=== PATIENT | male | born 1965 | race African-American/Black ===

== ENCOUNTER 2021-07-07 20:58 | Observation (INO) ==
[2021-07-07] MEDS ORDERED: CIPROFLOXACIN 500 MG TABLET PO STA (21:13)
[2021-07-07] MEDS ORDERED: CLINDAMYCIN 300 MG CAPSULE PO STA (21:13)
[2021-07-07] MEDS ORDERED: DIPH/TET/ACEL PERT BOOSTER VACCINE 0.5 ML VIAL IM ONE (21:18)
[2021-07-07] MEDS ORDERED: CIPROFLOXACIN INJ 400 MG/200 ML PREMIX IV STA (21:27)
[2021-07-07] MEDS ORDERED: CLINDAMYCIN INJ 600 MG/50 ML PREMIX IV STA (21:27)
[2021-07-07] MEDS ORDERED: RABIES VIRUS VACCINE 1 ML/2.5 UNIT KIT IM ONE (21:37)
[2021-07-07] MEDS ORDERED: RABIES IMMUNE GLOBULIN 300 UNIT/ML IM STA (21:37)
[2021-07-07] MEDS: SODIUM CHLORIDE 0.9% 1,000 ML IV SCH (22:00)
[2021-07-07 22:05] LABS: Basophils % 0.3 % (0.0-0.8); Eosinophils # 0.1 10*3/uL (0.0-0.87); Eosinophils % 1.4 % (0.00-10.9); Hematocrit 33.2 VOL% (42.0-52.0); Hemoglobin 10.9 GM/DL (14.0-18.0); Immature Granulocytes % 0.3 %; Immature Granulocytes Absolute 0.03 #; Lymphocytes # 2.6 10*3/uL (1.4-4.0); Lymphocytes % 25.6 % (21.2-54.2); Mean Corpuscular HGB Conc 32.8 GM/DL (32-36); Mean Corpuscular Volume 88.1 FL (87-102); Mean Platelet Volume 9.9 FL (9.6-12.0); Monocytes % 7.8 % (1.7-12.7); Neutrophils % 64.6 % (38.7-73.9); Platelet Count 212 T/CUMM (130-400); Red Blood Count 3.77 MC/CUMM (3.8-5.5); Red Cell Distribution Width 14.4 % (9.3-17.3); White Blood Count 10.2 T/CUMM (4-12)
[2021-07-07 22:28] LABS: Alanine Aminotransferase 26 U/L (16-61); Albumin 4.3 G/DL (3.4-5.0); Alkaline Phosphatase 32 U/L (45-117); Aspartate Amino Transferase 25 U/L (0-37); Bilirubin,Total < 0.39 MG/DL (0.20-1.00); Blood Urea Nitrogen 15 MG/DL (7-18); Calcium 8.7 MG/DL (8.5-10.1); Carbon Dioxide 23 MMOL/L (21-32); Estimated Glom Filtration Rate 92 ML/MIN; Glucose 113 MG/DL (74-106); Osmolality,Calculated 278.5 MOS/KG (273-304); Potassium 3.9 MMOL/L (3.5-5.1); Sodium 139 MMOL/L (136-145); Total Protein 7.5 G/DL (6.4-8.2)
[2021-07-08] MEDS ORDERED: ACETAMINOPHEN 325 MG TABLET PO PRN (00:04)
[2021-07-08] MEDS ORDERED: ONDANSETRON 4 MG/2 ML VIAL IV PRN (00:04)
[2021-07-08] MEDS ORDERED: DEXTROSE 50% 25 GM/50 ML SYRINGE IV PRN (00:04)
[2021-07-08] MEDS ORDERED: GLUCAGON 1 MG VIAL IM PRN (00:04)
[2021-07-08] MEDS: INSULIN REGULAR 100 UNIT/ML SUBCUT SCH ×4 (00:55→18:25)
[2021-07-08] MEDS: HYDROmorphone 2 MG/1 ML VIAL IV PRN ×4 (01:10→22:47)
[2021-07-08] MEDS: CLINDAMYCIN INJ 600 MG/50 ML PREMIX IV SCH ×4 (03:09→21:45)
[2021-07-08] MEDS: SODIUM CHLORIDE 0.9% 1,000 ML IV SCH ×3 (05:04→23:37)
[2021-07-08 07:12] LABS: Basophils % 0.2 % (0.0-0.8); Eosinophils # 0.2 10*3/uL (0.0-0.87); Eosinophils % 1.6 % (0.00-10.9); Hematocrit 33.1 VOL% (42.0-52.0); Hemoglobin 10.7 GM/DL (14.0-18.0); Immature Granulocytes % 0.3 %; Immature Granulocytes Absolute 0.04 #; Lymphocytes # 3.4 10*3/uL (1.4-4.0); Mean Corpuscular HGB Conc 32.3 GM/DL (32-36); Mean Corpuscular Volume 88.5 FL (87-102); Mean Platelet Volume 10.4 FL (9.6-12.0); Monocytes % 8.2 % (1.7-12.7); Neutrophils % 62.7 % (38.7-73.9); Platelet Count 210 T/CUMM (130-400); Red Blood Count 3.74 MC/CUMM (3.8-5.5); Red Cell Distribution Width 14.5 % (9.3-17.3); White Blood Count 12.7 T/CUMM (4-12)
[2021-07-08] MEDS: PANTOPRAZOLE 40 MG TABLET PO SCH (08:37)
[2021-07-08] MEDS: CIPROFLOXACIN INJ 400 MG/200 ML PREMIX IV SCH (11:52)
[2021-07-08] MEDS ORDERED: LIDOCAINE 1% 20 ML VIAL MISC INJ ONE (12:55)
[2021-07-08] MEDS ORDERED: RABIES IMMUNE GLOBULIN 300 UNIT/ML IM ONE (13:30)
[2021-07-08] MEDS: SODIUM HYPOCHLORITE 0.25% IRRIG 473 ML BOTTLE TOP SCH (15:55)
[2021-07-08] MEDS: metFORMIN 500 MG TABLET PO SCH (17:30)
[2021-07-08] MEDS: POTASSIUM CHLORIDE 20 MEQ TABLET PO SCH (21:45)
[2021-07-09] MEDS: CIPROFLOXACIN INJ 400 MG/200 ML PREMIX IV SCH (01:10)
[2021-07-09] MEDS: INSULIN REGULAR 100 UNIT/ML SUBCUT SCH ×2 (01:24→06:42)
[2021-07-09] MEDS: CLINDAMYCIN INJ 600 MG/50 ML PREMIX IV SCH ×2 (05:30→10:28)
[2021-07-09] MEDS: SODIUM CHLORIDE 0.9% 1,000 ML IV SCH (06:38)
[2021-07-09] MEDS: HYDROmorphone 2 MG/1 ML VIAL IV PRN (07:10)
[2021-07-09 08:05] VITALS: BP 144/79
[2021-07-09] MEDS: metFORMIN 500 MG TABLET PO SCH (08:52)
[2021-07-09] MEDS: PANTOPRAZOLE 40 MG TABLET PO SCH (08:53)
[2021-07-09] MEDS: POTASSIUM CHLORIDE 20 MEQ TABLET PO SCH (08:53)
[2021-07-09] MEDS: SODIUM HYPOCHLORITE 0.25% IRRIG 473 ML BOTTLE TOP SCH (08:53)
[2021-07-09] MEDS ORDERED: ESCITALOPRAM 10 MG TABLET PO SCH (09:00)
[2021-07-09] MEDS ORDERED: ROSUVASTATIN 20 MG TABLET PO SCH (09:00)
[2021-07-09] MEDS ORDERED: POTASSIUM CHLORIDE 20 MEQ TABLET PO SCH (09:00)
[2021-07-09] MEDS ORDERED: amLODIPine 10 MG TABLET PO SCH (09:00)
== END 2021-07-09 11:55 | disposition home or self-care (01) ==
LOC: N.EDINP 20:58 → N.ED 20:58 → N.3E 23:32
PROVIDERS: ADMIT Student in an Organized Health Care Education/Training Program; ATTEND Student in an Organized Health Care Education/Training Program